=== PATIENT | male | born 1970 | race Caucasian/White ===

== ENCOUNTER 2019-12-11 10:05 | Emergency (ER) | payer OTHER ==
[~2019-12-11] VITALS: Ht 185.4 cm; Wt 95.3 kg
[2019-12-11] MEDS ORDERED: SERTRALINE HCL100 MG PO (10:14)
[2019-12-11] MEDS ORDERED: LIPITOR10 MG PO (10:14)
[2019-12-11 10:20] LABS: URINE BILIRUBIN NEGATIVE (Negative); URINE BLOOD 3+ (Negative); URINE CLARITY CLEAR; URINE COLOR YELLOW; URINE GLUCOSE-RANDOM NEGATIVE (Negative); URINE KETONES NEGATIVE (Negative); URINE LEUKOCYTES-REFLEX NEGATIVE (Negative); URINE NITRITE-REFLEX NEGATIVE (Negative); URINE PROTEIN NEGATIVE (Negative); URINE SPECIFIC GRAVITY 1.025 (1.005-1.030); URINE UROBILINOGEN 0.2 E.U./dl (0.2-1.0)
[2019-12-11 10:25] LABS: HEMATOCRIT 46.3 % (42.0-52.0); HEMOGLOBIN 16.2 gm/dL (14.0-18.0); MCH 30.8 pg (26.0-34.0); MPV 8.1 fl. (7.2-11.1); NUCLEATED RBCS 0 /100WBC; PLATELET COUNT* 209 thou/uL (150-400); RBC 5.26 mil/uL (4.50-6.00); RDW-CV 12.4 % (10.5-14.5); WBC 5.4 thou/uL (4.0-11.0)
[2019-12-11 10:28] LABS: BACTERIA-REFLEX 1-9 Few /HPF (None Seen); CASTS None Seen /LPF (None Seen); CRYSTALS None Seen /LPF (None Seen); MUCUS 0-3 Light strn/LPF (None Seen); SQUAMOUS 0-3 Few /LPF (0-3); URINE RBC 3-10 Few /HPF (0-2); URINE WBC-REFLEX 0-5 Rare /HPF (0-5)
[2019-12-11 10:33] LABS: CALCIUM 8.5 mg/dL (8.5-10.1); POTASSIUM 4.3 mmol/L (3.5-5.1)
[2019-12-11 10:37] LABS: ALBUMIN 4.1 g/dL (3.4-5.0); TOTAL BILIRUBIN 0.3 mg/dL (<0.1-1.0); TOTAL PROTEIN 7.7 g/dL (6.4-8.2)
[2019-12-11 11:06] LABS: ABSOLUTE EOSINOPHILS 0.3 thou/uL (0.0-0.7); ABSOLUTE LYMPHOCYTES 1.7 thou/uL (0.8-5.3); ABSOLUTE MONOCYTES 0.3 thou/uL (0.0-1.2); ABSOLUTE NEUTROPHILS 3.1 thou/uL (1.6-8.1); PLATELET ESTIMATE ADEQUATE
[2019-12-11] MEDS ORDERED: ONDANSETRON HCL4 M2 PO ×5 (12:00→12:14)
[2019-12-11] MEDS ORDERED: CITRATE OF MAG296 M1 PO ×4 (12:04→12:14)
[2019-12-11] MEDS ORDERED: KEFLEX500 M1 PO (12:26)
[2019-12-11 12:33] VITALS: BP 128/70
== END 2019-12-11 12:33 | disposition home or self-care (01) ==
LOC: M.ERS 10:05
PROVIDERS: Nurse Practitioner Family
DX: K59.00 Constipation, unspecified (principal); R31.9 Hematuria, unspecified; E78.5 Hyperlipidemia, unspecified; Z90.49 Acquired absence of other specified parts of digestive tract